=== PATIENT | female | born 1980 | race Caucasian/White ===

== ENCOUNTER 2024-02-10 00:56 | Emergency (ER) | payer MEDICARE, SELFPAY ==
[2024-02-10 01:01] VITALS: BP 118/70
[2024-02-10 01:58] VITALS: BMI 33.5
[2024-02-10 02:10] LABS: % Eosinophils 0.7 % (0-6); % Immature Granulocytes 0.3 % (0-0.5); % Lymphocytes 11.1 % (20.5-51.1); % Monocytes 4.5 % (1.7-9.3); % Neutrophils 82.4 % (42.2-75.2); Absolute Basophils 0.1 10^3/uL (0-0.2); Absolute Eosinophils 0.1 10^3/uL (0-0.7); Absolute Lymphocytes 0.8 10^3/uL (1.2-3.4); Absolute Monocytes 0.3 10^3/uL (0.1-0.6); Absolute Neutrophils 5.7 10^3/uL (1.4-6.5); Hematocrit 37.5 % (37.0-47.0); Mean Corp Hgb Conc. 37.3 g/dL (33.0-37.0); Mean Platelet Volume 8.4 fL (7.4-10.4); Nucleated Red Blood Cells % 0 %; Platelet Count 246 10^3/uL (130-400); Red Blood Cell Count 4.12 10^6/uL (4.20-5.40); Red Cell Dist. Width 12.8 % (11.5-14.5)
[2024-02-10] MEDS: ZOFRAN 4 MG IV (02:20)
[2024-02-10] MEDS: TORADOL 15 MG IV (02:20)
[2024-02-10 02:55] LABS: HCG, Serum Qualitative Screen Negative
--- NOTE | 2024-02-10 02:55 | ED.GENMED ---
History of Present Illness
General
Chief Complaint: Abdominal Symptoms
Source: patient and healthcare or medical
Exam Limitations: clinical condition
Time Seen by Provider: 02/10/24 01:42
History of Present Illness
History of Present Illness:
This is a 43-year-old woman with history of Down syndrome, intellectual delay as well as history of anxiety, depression, obstructive sleep apnea. She presents with her lead shipper with complaints of acute onset of abdominal pain accompanied with
nausea and vomiting. Symptoms began around 10:30 PM tonight. She has had 2-3 episodes of vomiting of partially digested food. She consumed French food for dinner last night.
No reported history of similar episodes in the past. No close contacts with similar symptoms. She has had no diarrhea. No fever.
No previous abdominal surgeries.
Past History
Past History
ED Past Medical History: Psychiatric (Anxiety/depression), Other (Down syndrome, developmental/intellectual delay) and Other (Obstructive sleep apnea. Uses CPAP at nighttime)
ED Past Surgical History: None
Social History
Tobacco: Non-smoker
Alcohol: None
Drug: None
Personal: Single
Living: assisted living (Resides with a lead shipper)
Employment: Disabled
Family History
Family History: Unable to obtain
Phy Exam
Physical Exam
Physical Exam:
GENERAL: 43-year-old woman with typical Down syndrome facial features presents with a lead shipper. She is awake and alert, appears in moderate distress, clutching at her mid upper abdomen. Anxious, minimally verbal.
EYE: pupils equal and reactive. anicteric
NECK: Supple, nontender, no meningismus, no significant adenopathy.
ENT: oral mucosa is moist. No rhinorrhea.
CARDIAC: Regular rate and rhythm. no murmur.
LUNGS: Clear breath sounds bilaterally, no acute respiratory distress, no wheezes/rales/rhonchi
ABDOMEN: Soft, nondistended, mild to moderate generalized tenderness to palpation, no r/g, no cvat. normoactive BS.
NEUROLOGICAL: Awake and alert, oriented x 3, no focal neuro deficits.
SKIN: Warm and dry, normal color, skin intact. No rash.
MUSCULOSKELETAL: No C/C/E. peripheral pulses are full and equal b/l. No palpable tenderness.
PSYCH: Moderately anxious. Cooperative.
Course
Orders/Labs/Results
Orders:
Orders
02/10/24 02:00
Test Result ONCE
02/10/24 02:01
Ketorolac [Toradol] 15 mg IV NOW STA
Ondansetron Injectable [Zofran] 4 mg IV NOW STA
02/10/24 02:05
Complete Blood Count/With Diff Urgent
Comprehensive Metabolic Panel Urgent
HCG, Serum Qualitative Screen Urgent
Lactic Acid Urgent
Lipase Urgent
02/10/24 02:55
0.9% Sodium Chloride 1000 ml [Nss] 1,000 ml IV BOLUS
02/10/24 03:25
CT Abd/pelvis W Iv Cont Urgent
Comment:
Reason For Exam: acute gen abd pain, N/V
02/10/24 04:42
Urinalysis Reflex To Culture Urgent
Date Specimen was Collected: 02/10/24
Time Specimen was Collected: 04:41
Abnormal Lab Results
02/10/24
02:05
RBC 4.12 L 10^6/uL
(4.20-5.40)
MCH 34.0 H pg
(27.0-31.0)
MCHC 37.3 H g/dL
(33.0-37.0)
Absolute Lymphs (auto) 0.8 L 10^3/uL
(1.2-3.4)
Neutrophils % 82.4 H %
(42.2-75.2)
Lymphocytes % 11.1 L %
(20.5-51.1)
Carbon Dioxide 31 H mmol/L
(22-30)
Glucose 126 H mg/dl
(70-99)
ALT 44 H U/L
(0-35)
02/10/24 02:05
02/10/24 02:05
Vital Signs
Initial and Last Documented VS:
Initial Vital Signs
Temp Pulse Resp BP Pulse Ox
97 F 90 22 118/70 98
02/10/24 01:01 02/10/24 01:01 02/10/24 01:01 02/10/24 01:01 02/10/24 01:01
Last Documented Vital Signs
Temp Pulse Resp BP Pulse Ox
97 F 92 16 91/50 97
02/10/24 01:01 02/10/24 04:00 02/10/24 04:00 02/10/24 04:00 02/10/24 04:00
MDM/Problems Addressed
Differential Diagnosis Includes:
Concern for acute gastroenteritis, pancreatitis, biliary colic/cholecystitis, small bowel obstruction, ureteric stone, less likely appendicitis, ovarian cyst.
Will medicate for pain and nausea, will check labs, urinalysis.
Will plan for imaging depending on clinical course and laboratory studies.
Chronic conditions affecting care: Psychiatric illness and Other (Down syndrome with intellectual disability)
*Radiology
Radiology exam reviewed: radiology read reviewed
*Pulse Oximetry
Patient hypoxic: no
*Critical Care Note
Total Time (30-74mins, 75-104mins- exclusive of procedures): Not Applicable
Update Note
Update Note:
02/10/2024 0518 AM
Patient has been comfortable and pain-free after initial IV dose of Toradol, Zofran. No further nausea and vomiting.
Tolerating ice chips.
Labs are unremarkable.
CAT scan unremarkable save for potentially bladder wall thickening versus underdistention. She has had no UTI symptoms and urinalysis is unremarkable.
I suspect acute gastroenteritis and will discharge to home with prescription for Zofran ODT to be used for as needed nausea. Recommend clear liquids this morning, slowly advance as tolerated.
Prompt follow-up with PCP for recheck.
ED Attending Note
-
Portions of this chart may have been created with voice recognition software.� Occasional wrong word or��sound alike� substitutions may have occurred due to the inherent limitations of voice recognition software.
Discharge Plan
Departure
Patient Disposition: Home (Routine Discharge)
Date of Disposition: 02/10/24
Time of Disposition: 05:23
Patient with high blood pressure during this ER visit?: No
Condition: Good
Discharge Problem:
Acute gastroenteritis
Instructions: Food poisoning, Viral gastroenteritis in adults, Clear Liquid Diet
Prescriptions:
New
ondansetron 4 mg tablet,disintegrating
4 mg PO QID PRN (Reason: nausea and vomiting) Qty: 20 0RF
No Action
vitamin E 400 unit Tablet
45 mg PO DAILY
ketoconazole 2 % Cream
1 applic TOPICAL BID
loratadine 10 mg Tablet
10 mg PO DAILY
escitalopram oxalate 20 mg Tablet
20 mg PO DAILY
Fish Oil 1,000 mg Capsule
1 cap PO BID
aripiprazole 2 mg Tablet
2 mg PO DAILY
cholecalciferol (vitamin D3) [Vitamin D3] 25 mcg (1,000 unit) Tablet
25 mcg PO DAILY
Jublia 10 % Solution With Applicator
1 applic TOPICAL DAILY
Referrals:
EMETERIO DUFFY NP [Family Provider] - Call in 1-3 days for appt
Interventions
Interventions:
*Risk Screen - Suicide Last Done: 02/10/24 01:01
*General Assessment Last Done: 02/10/24 01:59
*Neglect/Abuse Screening Last Done: 02/10/24 01:01
ED- Fall Risk Assessment Last Done: 02/10/24 02:00
*ED COVID-19 Vaccine History Last Done: 02/10/24 01:59
NN-Idkeim-Hsxqeoiekj Assessment Last Done: 02/10/24 02:00
Discharge Date and Time
Print Language: POLISH
[2024-02-10] MEDS: NSS 1000 IV (02:58)
[2024-02-10 03:04] LABS: ALT (SGPT) 44 U/L (0-35); AST (SGOT) 34 U/L (14-36); Albumin 4.4 g/dl (3.5-5.0); Alkaline Phosphatase 60 U/L (38-126); Blood Urea Nitrogen 15 mg/dl (7-17); Calcium 9.1 mg/dl (8.4-10.2); Carbon Dioxide 31 mmol/L (22-30); Chloride 102 mmol/L (98-107); Estimated Creatinine Clearance 81 ml/min; Glucose 126 mg/dl (70-99); Lipase 72 U/L (23-300); Potassium 3.6 mmol/L (3.5-5.1); Sodium 143 mmol/L (135-145); Total Bilirubin 0.5 mg/dl (0.2-1.3); Total Protein 7.1 g/dl (6.3-8.2); eGFR > 60.00
[2024-02-10 03:08] LABS: Lactic Acid 0.9 mmol/L (0.7-2.0)
[2024-02-10 04:00] VITALS: BP 91/50
[2024-02-10 05:00] LABS: Urine Albumin Trace (Neg - Trace); Urine Bilirubin Negative (Negative); Urine Character Slightly Cloudy (Clear); Urine Color Yellow; Urine Glucose Negative (Negative); Urine Ketone Negative (Negative); Urine Leukocyte Negative (Negative); Urine Nitrite Negative (Negative); Urine Occult Blood Negative (Negative); Urine Urobilinogen Negative (Neg - 1+)
== END 2024-02-10 05:30 | disposition home or self-care (01) ==
LOC: EMR 00:56
PROVIDERS: EMERGENCY PHYSICIAN Emergency Medicine; FAMILY PHYSICIAN Nurse Practitioner Family
DX: K52.9 Noninfective gastroenteritis and colitis, unspecified (principal); Q90.9 Down syndrome, unspecified; G47.33 Obstructive sleep apnea (adult) (pediatric)
CPT/HCPCS: 96374; 96375; 96361; 99284; 74177; 80053; 81003; 83605; 83690; 84703; 85025; Q9967

== ENCOUNTER 2024-11-28 19:52 | Emergency (ER) | payer MEDICARE, SELFPAY ==
[2024-11-28 20:08] VITALS: BP 105/56
[2024-11-28 20:20] LABS: Hematocrit 39.2 % (37.0-47.0); Hemoglobin 13.8 g/dL (12.0-16.0); Mean Corp Hgb Conc. 35.2 g/dL (33.0-37.0); Mean Corpuscular Volume 96.1 fL (81.0-99.0); Nucleated Red Blood Cells % 0 %; Platelet Count 250 10^3/uL (130-400); Red Cell Dist. Width 13.2 % (11.5-14.5)
[2024-11-28 20:33] LABS: HCG, Serum Qualitative Screen Negative
[2024-11-28 20:48] LABS: ALT (SGPT) 29 U/L (0-35); AST (SGOT) 26 U/L (14-36); Albumin 4.1 g/dl (3.5-5.0); Alkaline Phosphatase 77 U/L (38-126); Blood Urea Nitrogen 25 mg/dl (7-17); Calcium 8.3 mg/dl (8.4-10.2); Carbon Dioxide 22 mmol/L (22-30); Chloride 114 mmol/L (98-107); Glucose 133 mg/dl (70-99); Lipase 98 U/L (23-300); Potassium 4.6 mmol/L (3.5-5.1); Sodium 143 mmol/L (135-145); Total Protein 6.7 g/dl (6.3-8.2); eGFR > 60.00
[2024-11-29] VITALS: BP 110/60
--- NOTE | 2024-11-29 02:06 | ED.GENMED ---
History of Present Illness
General
Chief Complaint: Abdominal Symptoms
Source: patient, career specialist and previous hospital records (ED visit January 2024 for somewhat similar complaint)
Exam Limitations: other (Moderate developmental delay, Down syndrome)
Time Seen by Provider: 11/29/24 00:36
Nursing documentation reviewed up to this point in time: agreed with
History of Present Illness
History of Present Illness:
The patient is a 44-year-old female with history of Down syndrome, presenting with abdominal pain and vomiting that started after dinner. The pain is localized around the umbilical area with no radiation to the upper abdomen or epigastric area. She
began feeling unwell and subsequently vomited shortly after attempting to eat dinner, describing her symptoms as, 'Im not feeling good.' No episodes of diarrhea were reported. The patients symptoms are similar to a previous episode in January 2024
when she presented with abdominal pain and vomiting after a meal. Unremarkable ED evaluation at that time including unremarkable laboratory studies and unremarkable CT abdomen pelvis. No recurrent episodes until tonight.
She resides in a [facility] setting and presents with a contracting analyst.
Past History
Past History
ED Past Medical History: Psychiatric (Anxiety/depression), Other (Down syndrome, developmental/intellectual delay) and Other (Obstructive sleep apnea. Uses CPAP at nighttime)
ED Past Surgical History: None
Social History
Tobacco: Non-smoker
Alcohol: None
Drug: None
Personal: Single
Living: assisted living (Resides with a contracting analyst)
Employment: Disabled
Family History
Family History: Unable to obtain
Phy Exam
Physical Exam
Physical Exam:
GENERAL: 44-year-old obese woman with typical Down syndrome features. She is bright and alert, pleasant, appears in no acute distress. A contracting analyst is accompanying. Patient intermittently points to her periumbilical region.
EYE: pupils equal and reactive. anicteric
NECK: Supple, nontender, no meningismus, no significant adenopathy.
ENT: posterior pharynx is clear, oral mucosa is moist. No rhinorrhea.
CARDIAC: Regular rate and rhythm. no murmur.
LUNGS: Clear breath sounds bilaterally, no acute respiratory distress, no wheezes/rales/rhonchi
ABDOMEN: Rotund, soft, nondistended, mild tenderness periumbilical region, no r/g, no cvat. No palpable masses nor hernia defects, normoactive BS.
NEUROLOGICAL: Alert and oriented x3, no focal neuro deficits. Gait is steady.
SKIN: Warm and dry, normal color, skin intact. No rash.
MUSCULOSKELETAL: No C/C/E. peripheral pulses are full and equal b/l. No palpable tenderness.
PSYCH: Normal and appropriate interaction.
Course
Orders/Labs/Results
Orders:
Orders
11/28/24 20:12
Test Result ONCE
11/28/24 20:14
Complete Blood Count/With Diff Urgent
Comprehensive Metabolic Panel Urgent
HCG, Serum Qualitative Screen Urgent
Comment: Notify provider if positive test present
Lipase Urgent
11/29/24 00:49
CT Abd/pelvis W Iv Cont Urgent
Comment:
Reason For Exam: periumbilical pain, acute N/V
11/29/24 02:50
Pantoprazole [Protonix] 40 mg PO NOW STA
Abnormal Lab Results
11/28/24
20:14
RBC 4.08 L 10^6/uL
(4.20-5.40)
MCH 33.8 H pg
(27.0-31.0)
Absolute Lymphs (auto) 0.8 L 10^3/uL
(1.2-3.4)
Neutrophils % 81.9 H %
(42.2-75.2)
Lymphocytes % 11.1 L %
(20.5-51.1)
Chloride 114 H mmol/L
(98-107)
BUN 25 H mg/dl
(7-17)
Glucose 133 H mg/dl
(70-99)
Calcium 8.3 L mg/dl
(8.4-10.2)
11/28/24 20:14
11/28/24 20:14
Vital Signs
Initial and Last Documented VS:
Initial Vital Signs
Temp Pulse Resp BP Pulse Ox
99.2 F 83 22 105/56 95
11/28/24 20:08 11/28/24 20:08 11/28/24 20:08 11/28/24 20:08 11/28/24 20:08
Last Documented Vital Signs
Temp Pulse Resp BP Pulse Ox
99.2 F 83 22 105/56 95
11/28/24 20:08 11/28/24 20:08 11/28/24 20:08 11/28/24 20:08 11/29/24 02:12
MDM/Problems Addressed
Differential Diagnosis Includes:
The Differential Diagnosis includes, in no particular order and is not limited to:
1. Gastroenteritis
2. Foodborne illness
3. Peptic ulcer disease
4. Gastritis
5. Irritable bowel syndrome
6. Urolithiasis
7. Biliary colic
8. Acute pancreatitis
9. Intestinal obstruction
10. Appendicitis
MDM/Problems Addressed:
Abdominal pain and vomiting after dinner.
Chronic conditions affecting care:
History and exam somewhat limited due to patient's intellectual disability.
Labs thus far are unremarkable. Normal white blood cell count. Unremarkable chemistries. Normal LFTs. Normal lipase. hCG is negative.
Will check CT abdomen and pelvis with IV contrast.
Chronic conditions affecting care: Psychiatric illness
*Radiology
Radiology exam reviewed: radiology read reviewed
*Pulse Oximetry
SaO2: 95
Oxygen Mode of Delivery: Room air
Patient hypoxic: no
*Critical Care Note
Total Time (30-74mins, 75-104mins- exclusive of procedures): Not Applicable
Update Note
Update Note:
02:45
Patient is bright and alert, happily eating ice chips. No recurrent vomiting, denies abdominal pain.
CAT scan shows mild gastric wall thickening and distal esophageal wall thickening which may represent gastritis and esophagitis. Mild bladder wall thickening which may represent underlying cystitis. Similar bladder wall thickening noted previously
with unremarkable urinalysis at that time and she continues to have no UTI symptoms, no lower abdominal discomfort. There is no bowel obstruction. Normal gallbladder and appendix. There is note of moderate stool burden but no obstipation.
Will discharge to home with recommendation to initiate a short course of daily Protonix. [place] diet.
Follow-up with PCP for recheck.
Return precautions discussed.
ED Attending Note
-
Portions of this chart may have been created with voice recognition software.� Occasional wrong word or��sound alike� substitutions may have occurred due to the inherent limitations of voice recognition software.
Discharge Plan
Departure
Patient Disposition: Home (Routine Discharge)
Date of Disposition: 11/29/24
Time of Disposition: 02:51
Patient with high blood pressure during this ER visit?: No
Condition: Good
Discharge Problem:
Acute gastritis without bleeding
Instructions: [place] Diet, Gastritis - ED discharge instructions
Prescriptions:
New
pantoprazole [Protonix] 40 mg tablet,delayed release (DR/EC)
40 mg PO DAILY Qty: 30 0RF
No Action
vitamin E 400 unit Tablet
45 mg PO DAILY
ketoconazole 2 % Cream
1 applic TOPICAL BID
loratadine 10 mg Tablet
10 mg PO DAILY
escitalopram oxalate 20 mg Tablet
20 mg PO DAILY
Fish Oil 1,000 mg Capsule
1 cap PO BID
aripiprazole 2 mg Tablet
2 mg PO DAILY
cholecalciferol (vitamin D3) [Vitamin D3] 25 mcg (1,000 unit) Tablet
25 mcg PO DAILY
Jublia 10 % Solution With Applicator
1 applic TOPICAL DAILY
ondansetron 4 mg tablet,disintegrating
4 mg PO QID PRN (Reason: nausea and vomiting) Qty: 20 0RF
Referrals:
Hortensia Bailon DO [Family Provider, Family Practice] - Call in 1-3 days for appt
Activity Restrictions/Additional Instructions:
Lillian may receive her 8 PM/evening medications upon returning home.
Interventions
Interventions:
*Risk Screen - Suicide Last Done: 11/28/24 20:08
*General Assessment Last Done: 11/28/24 20:08
*Neglect/Abuse Screening Last Done: 11/28/24 20:08
Discharge Date and Time
Print Language: KHMER
[2024-11-29] MEDS: PROTONIX 40 MG PO (02:57)
== END 2024-11-29 03:08 | disposition home or self-care (01) ==
LOC: EMR 19:52
PROVIDERS: Student in an Organized Health Care Education/Training Program; EMERGENCY PHYSICIAN Emergency Medicine; FAMILY PHYSICIAN Family Medicine
DX: K29.00 Acute gastritis without bleeding (principal); Q90.9 Down syndrome, unspecified; G47.33 Obstructive sleep apnea (adult) (pediatric)
CPT/HCPCS: 99284; 74177; 80053; 83690; 84703; 85025; Q9967

== ENCOUNTER → 2025-02-17 09:53 | Outpatient (REF) | payer MEDICARE, SELFPAY | LOC: WDC 09:53 | PROVIDERS: ATTENDING PHYSICIAN Family Medicine | DX: Z12.31 Encounter for screening mammogram for malignant neoplasm of breast (principal) | CPT/HCPCS: 77063; 77067 ==